=== PATIENT | male | born 1950 | race Caucasian/White ===

== ENCOUNTER 2019-03-03 20:09 | Emergency (ER) | payer MEDICARE, OTHER ==
[2019-03-03] MEDS ORDERED: Adacel (T-DAP) 0.5 ML SYRINGE ONE (21:13)
[2019-03-03] MEDS ORDERED: Triple Antibiotic Oint 1 GM Packet ONE (21:33)
== END 2019-03-03 22:07 | disposition short-term general hospital (02) ==
LOC: ERS 20:09
DX: T23.022A Burn of unspecified degree of single left finger (nail) except thumb, initial encounter (principal); T31.0 Burns involving less than 10% of body surface; I10 Essential (primary) hypertension; Y63 Failure in dosage during surgical and medical care
CPT/HCPCS: 90471; 90715

== ENCOUNTER 2022-04-08 18:45 | Emergency (ER) | payer MEDICARE, OTHER ==
[2022-04-08] MEDS ORDERED: Fluorescein Opthalmic Strip ONE (21:02)
[2022-04-08] MEDS ORDERED: Proparacaine 0.5% Opth 15 ML BOT ONE (21:02)
== END 2022-04-08 21:57 | disposition home or self-care (01) ==
LOC: ERS 18:45
DX: S05.11XA Contusion of eyeball and orbital tissues, right eye, initial encounter (principal); I10 Essential (primary) hypertension; W22.09XA Striking against other stationary object, initial encounter
CPT/HCPCS: 70450; 70486